=== PATIENT | male | born 1960 | race Caucasian/White ===

== ENCOUNTER 2025-02-02 18:29 | Inpatient (IN) | payer BC ==
[~2025-02-02] VITALS: Ht 180.3 cm; Wt 100.5 kg
[2025-02-02 20:30] VITALS: BP 131/72; PULSE 97; RESP 16; O2SAT 97
[2025-02-02 20:50] VITALS: RESP 16; O2SAT 97
[2025-02-02] MEDS: HEPARIN DRIP-CARDIAC**PHARMACIST-TO-DOSE IV ONE (21:15)
[2025-02-02] MEDS ORDERED: heparin 10,000 units/1 ML INJ IV PRN (21:25)
[2025-02-02] MEDS ORDERED: heparin 10,000 units/1 ML INJ IV ONE (21:25)
[2025-02-02] MEDS: HEPARIN DRIP INITAL BOLUS --- DO NOT GIVE/ORDER MC ONE ×2 (21:40)
[2025-02-02 21:47] LABS: MEAN PLATELET VOLUME 8.3 FL (7.4-10.4); RED CELL DISTRIBUTION WIDTH 13.6 % (11.5-14.5)
[2025-02-02 22:00] VITALS: BP 130/69; PULSE 86; RESP 12; TEMP 97.3; O2SAT 98
[2025-02-02 22:00] LABS: INR 1.1 INR
[2025-02-02] MEDS ORDERED: UBID100C16 PO (22:24)
[2025-02-02] MEDS ORDERED: DOCO1CAP6 PO (22:28)
[2025-02-02] MEDS ORDERED: ACET-1008 PO (22:30)
[2025-02-02] MEDS ORDERED: IBUP-1984 PO (22:35)
[2025-02-02] MEDS ORDERED: GLUC1TAB75 PO (22:35)
[2025-02-02] MEDS: MESSAGE TO NURSING IV ONE (23:19)
[2025-02-03 02:00] VITALS: BP 103/67; PULSE 83; RESP 14; TEMP 97.1; O2SAT 97
[2025-02-03 04:15] LABS: MEAN PLATELET VOLUME 8.3 FL (7.4-10.4); RED CELL DISTRIBUTION WIDTH 13.9 % (11.5-14.5)
[2025-02-03] MEDS: heparin 25,000 UNIT/250ml bag 250 ML IV PRN (05:03)
[2025-02-03 06:00] VITALS: BP 132/95; PULSE 81; RESP 10; TEMP 97.3; O2SAT 98
--- NOTE | 2025-02-03 07:44 | ELECTROCARDIOGRAPH REPORT ---
[facility] Test Date: 2025-02-03 Test Time: 07:43:30 Pat Name: EDMUNDO GUZMAN Department: [facility] 3S [facility]: [id number] Room: [address] Gender: M Software Tester: : 1960 Requested By: NICKO VILLELA Order Number: [id number] Reading MD: Dr. ISABEL Sotelo Measurements Intervals [place] Rate: 68 P: 1 NV: 187 QRS: 1 QRSD: 94 T: 12 QT: 391 QTc: 416 Interpretive Statements Sinus rhythm RSR' in V1 or V2, probably normal variant Electronically Signed On 02-05-2025 20:17:[address] ISABEL Sotelo Please click the below link to view image of tracing.
[2025-02-03 08:00] VITALS: RESP 12; O2SAT 98
[2025-02-03] MEDS: aspirin 81mg, enteric-coated 1 TAB TABLET.DR PO SCH (08:00)
[2025-02-03 11:00] VITALS: BP 150/81; PULSE 81; RESP 12; TEMP 98.9; O2SAT 97
[2025-02-03] MEDS: MESSAGE TO NURSING IV ONE (11:10)
[2025-02-03] MEDS ORDERED: verapamil 2.5 mg/ml inj IV ONE (11:15)
[2025-02-03] MEDS ORDERED: LIDOcaine 1% 30ml preserv. free vial ONE (11:16)
[2025-02-03] MEDS ORDERED: midazolam 1 mg/ML 2ml injection ONE (11:16)
[2025-02-03] MEDS ORDERED: heparin 1,000unit/ml 10ml vial 10 ML ONE (11:16)
[2025-02-03] MEDS ORDERED: nitroGLYCERIN 500mcg/5mL D5W 5 ML IV ONE (11:16)
[2025-02-03] MEDS ORDERED: fentaNYL/PF 50MCG/1 ML 2ML syringe ONE (11:16)
[2025-02-03] MEDS ORDERED: iohexol 350 MG/ML 50ML vial IV ONE (12:20)
--- NOTE | 2025-02-03 12:53 | CARDIAC CATH REPORT ---
Cardiac Cath Report Providers to CC CC: NICKO VILLELA MD Procedure Comments: 1. Left Heart Catheterization 2. Selective Coronary Angiography 3. Instantaneous Wave-Free Ratio of the Right Coronary Arteryx 1 4. Instantaneous Wave-Free Ratio of the Left Anterior Descending x 1 5. Instantaneous Wave-Free Ratio of the Left Circumflex Artery x 1 6. Left ventriculography 7. Right Radial Artery Access Brief History/Indications: 64yo man with HTN, HLD transferred for , found to have elevated troponin. Techniques: After informed consent was obtained, the patient was brought to the cardiac catheterization laboratory and prepped and draped in usual sterile fashion for left heart catheterization and other procedures mentioned above. The right wrist was anesthetized with 1% Lidocaine and the right radial artery accessed via the Seldinger technique after which a 6Fr sheath was placed. Through this a TIG was used to engage the left ventricle, the left coronary artery, and the right coronary artery. The TIG was exchanged for a pigtail catheter which was used to cross into the left ventricle. See below for interventional procedure details. At the conclusion of the case the sheath was removed and hemostasis obtained with a VascBand. Findings Findings: HEMODYNAMICS: LV: 109/- mmHg LVEDP: 1 mmHg Ao: 110/66, MAP 82 mmHg CORONARY ARTERIES: Rt Dominant LMCA: Trifurcates into LAD, LCx, and RI. Luminal Irregularities LAD: Prox 30-40% stenosis D1: Luminal Irregularities D2: Small, luminal irregularities RI: Luminal Irregularities LCx: Ostial 50-60% stenosis OM1: Luminal Irregularities RCA: Proximal 50-60% stenosis PDA: Luminal Irregularities PL: Luminal Irregularities LV Gram: LVEF >70% without wall motion abnormalities iFR of the RCA: A JR 4 guide was placed into the ascending Aorta. The iFR system was used to connect to the Pressure-Wire. Both systems were zeroed. The Pressure wire was advanced into the Ascending Aorta where equalization was performed. The guide then used to engage the right coronary artery. The RCA lesion was crossed with the pressure wire. Multiple recordings were performed. The wire was then removed and repeat angiography no evidence of dissection. iFR Readings: 0.94, 0.94 No significant drift on pullback iFR of the LAD/LCx: A JL 4 guide was placed into the ascending Aorta. The iFR system was used to connect to the Pressure-Wire. Both systems were zeroed. The Pressure wire was advanced into the Ascending Aorta where equalization was performed. The guide then used to engage the left coronary artery. The LAD lesion was crossed with the pressure wire. Multiple recordings were performed. The wire was then removed and repeat angiography no evidence of dissection. iFR Readings: 0.94, 0.94 No significant drift on pullback The wire was then re-directed to the LCx system where it was used to cross the LCx lesion. Multiple recordings were performed. The wire was then removed and re peat angiography no evidence of dissection. iFR Readings: 0.99, 0.99 No significant drift on pullback Results Results: 1. Moderate CAD with neg iFR of the RCA, prox LAD, and LCx. 2. Hyperdynamic LV with LVEF > 70%. 3. RRA access, closed with VascBand RECOMMENDATIONS: 1. Cont GDMT HARJINDER VILLELA MD Feb 03, 2025 12:53
[2025-02-03] MEDS ORDERED: LOSA50TA64 PO (13:57)
[2025-02-03] MEDS ORDERED: HYDR25TA5 PO (13:57)
[2025-02-03] MEDS ORDERED: PRAV80TA75 PO (13:57)
[2025-02-03] MEDS ORDERED: ASPI-1071 PO (15:18)
[2025-02-03] MEDS ORDERED: NITR0.4T51 SL (15:19)
[2025-02-03] MEDS ORDERED: METO-395 PO (15:21)
--- NOTE | 2025-02-03 15:34 | CONSULTATION REPORT ---
History of Present Illness Providers to CC CC: NICKO PATINO MD ~ Reason for Admit\Admit Dx: Cardiology Consultation Refering MD: [facility] History of Present Illness This is a 64 year-old male with a past medical history of HTN, HLD, obesity who was transferred from [facility] with elevated troponin levels and chest pain. At time of exam, his chest pain has resolved. He remains NPO. Allergies: Coded Allergies: butorphanol (Verified Allergy, Severe, Hallucinations, 02/02/25) Active prescriptions Cardiac Medications Losartan 50mg QD HCTZ 25mg QD Pravastatin 80mg QD Home Medications Home Medications Active Metoprolol Succinate 25 Mg Tab.sr.24h 1 Tab PO DAILY 30 Days Nitrostat SL* (Nitroglycerin) 0.4 Mg Tablet 1 Tab SL Q5MIN PRN Ecotrin* (Aspirin) 81 Mg Tablet.dr 1 Tab PO DAILY 90 Days Reported Pravastatin Sodium 80 Mg Tablet 80 Mg PO DAILY Losartan Potassium 50 Mg Tablet 1 Tab PO DAILY Hydrochlorothiazide 25 Mg Tab 1 Tab PO DAILY Tylenol (Acetaminophen) 325 Mg Tablet 500 Mg PO PRN PRN 30 Days Past Medical History Medical History Comment Hypertension Hyperlipidemia Obesity Past Surgical History Surgical History Comment No prior cardio-pulmonary surgeries or procedures. Past Family History Family History Comment Non-contributory Past Social History Social History Comment Former smoker, quit over 10 years ago. Denies ilicit drugs. Alcohol socially 1-2 per week. Physical Exam Last Vital Signs Recorded: Temperature: 97.1, Source: Oral, Heart Rate: 74, Respiratory Rate: 12, BP: 137/67, Pulse Oximetry: 98, Weight: 100.500 General Appearance: alert, no apparent distress EENT: PERRL/EOMI Neck: normal inspection Respiratory: lungs clear, normal breath sounds Chest: no accessory muscle use Cardiovascular: normal peripheral pulses Peripheral Pulses: 3+ radial (R), 3+ radial (L), 3+ dorsalis pedis (R), 3+ dorsalis pedis (L) Gastrointestinal: normal palpation Back: no CVA tenderness Neurologic: oriented x4, memory intact Psychiatric: normal mood/affect Skin: normal color, warm/dry Lymphatic: no adenopathy Review of Systems All Other Systems at this time: Reviewed and Negative ROS ROS reviewed and negative except that which specified in HPI. Results EKG EKG Normal sinus rhythm, no ischemic changes. Diagram Lab Result Diagram: 02/03/25 0405 Assessment/Plan Additional Plan This is a 64 year-old male with a past medical history of HTN, HLD, obesity who was transferred from [facility] with elevated troponin levels and chest pain. NSTEMI The patient is now chest pain free, however troponin levels were significantly elevated at [facility]. Discussed with patient all treatment options. He would be a good candidate for heart catheterization and percutaneous revascularization, if necessary. The nature of the procedure, including the risks, benefits, and alternatives were discussed with the patient, he is agreeable to move forward. Primary Hypertension. Well controlled per pt. -Continue Losartan 50mg QD. Hyperlipidemia. Intollerant of Atorvastatin. -Continue Pravastatin 80mg QD. The above plan was reviewed with supervising physician, Dr. Opal Patino, who is in agreement. Supervising MD Supervising Physician: TU Acosta [facility] Feb 03, 2025 15:34
--- NOTE | 2025-02-03 16:12 | DISCHARGE SUMMARY ---
Discharge Summary Providers to CC CC: NICKO PATINO MD ~ Discharge Summary Admission Diagnosis: NSTEMI Hospital Course DATE OF ADMISSION: DATE OF DISCHARGE: Discharge Diagnosis\Comment: NSTEMI. Non-obstructive coronary artery disease. Operations\Procedures: Left Heart Catheterization Results: 1. Moderate CAD with neg iFR of the RCA, prox LAD, and LCx. 2. Hyperdynamic LV with LVEF > 70%. 3. RRA access, closed with VascBand Consultants: None Complications: None Condition on DC: Stable New Medications: Metoprolol Succinate (Metoprolol Succinate) 25 Mg Tab.sr.24h 1 TAB PO DAILY for 30 Days, #30 TAB 0 Refills Nitroglycerin SL* (Nitrostat SL*) 0.4 Mg Tablet 1 TAB SL Q5MIN PRN for Chest pain Q5min PRNx3-call MD, #25 TAB Aspirin (Ecotrin*) 81 Mg Tablet.dr 1 TAB PO DAILY for 90 Days, #90 TAB.SR Continued Medications: Acetaminophen (Tylenol) 325 Mg Tablet 500 MG PO PRN PRN for pain or fever for 30 Days, #30 TAB Hydrochlorothiazide (Hydrochlorothiazide) 25 Mg Tab 1 TAB PO DAILY Losartan Potassium (Losartan Potassium) 50 Mg Tablet 1 TAB PO DAILY Pravastatin Sodium (Pravastatin Sodium) 80 Mg Tablet 80 MG PO DAILY Discharge Summary: This is a 64 year-old male with a past medical history of HTN, HLD, obesity who was transferred from [facility] with elevated troponin levels and chest pain. He was taken to the cardiac catheterization lab and was found to have non- obstructive CAD as follows: CORONARY ARTERIES: Rt Dominant LMCA: Trifurcates into LAD, LCx, and RI. Luminal Irregularities LAD: Prox 30-40% stenosis D1: Luminal Irregularities D2: Small, luminal irregularities RI: Luminal Irregularities LCx: Ostial 50-60% stenosis OM1: Luminal Irregularities RCA: Proximal 50-60% stenosis PDA: Luminal Irregularities PL: Luminal Irregularities LV Gram: LVEF >70% without wall motion abnormalities Results: 1. Moderate CAD with neg iFR of the RCA, prox LAD, and LCx. 2. Hyperdynamic LV with LVEF > 70%. 3. RRA access, closed with VascBand RECOMMENDATIONS: 1. Cont GDMT Continue home medications, including Pravastatin (allergic to Atorvastatin). Start Metoprolol, ASA as above. Follow up with PCP within 2 weeks. Follow up with [facility]. *Problems/Diagnosis: (1) NSTEMI (non-ST elevated myocardial infarction) Status: Acute Assessment & Plan: Non-obtstructive CAD (2) Essential hypertension Status: Chronic Assessment & Plan: Continue Losartan and Metoprolol Succinate. F/U with PCP (3) Hyperlipidemia Status: Chronic Assessment & Plan: Intollerant to Atorvastatin. Continue Pravastatin 80mg QHS. (4) Obesity Status: Chronic Assessment & Plan: Work with PCP to develop exercise regimen and heart healthy diet. Goal BMI <28 Total Time Spent on D/C: > 30 Minutes Counseling Services Smoking & Tobacco Cessation: N/A Supervising MD Co-signing Provider: Opal Patino MD Problem Qualifiers (1) Hyperlipidemia: Qualified Codes: E78.00 - Pure hypercholesterolemia, unspecified (2) Obesity: Qualified Codes: E66.811 - Obesity, class 1; E66.09 - Other obesity due to excess calories; Z68.30 - Body mass index [BMI] 30.0-30.9, adult WILLIAM,TU Sinclair [facility] Feb 03, 2025 15:56
== END 2025-02-03 15:59 | disposition home or self-care (01) | DRG 282 ==
LOC: PCU 3S 20:52
PROVIDERS: ADMIT Internal Medicine Interventional Cardiology; ATTEND Internal Medicine Interventional Cardiology
PROC: 4A023N7 Measurement of Cardiac Sampling and Pressure, Left Heart, Percutaneous Approach (ICD-10-PCS; principal; 2025-02-03)
PROC: B2111ZZ Fluoroscopy of Multiple Coronary Arteries using Low Osmolar Contrast (ICD-10-PCS; 2025-02-03)
PROC: B2151ZZ Fluoroscopy of Left Heart using Low Osmolar Contrast (ICD-10-PCS; 2025-02-03)
PROC: 4A033BC Measurement of Arterial Pressure, Coronary, Percutaneous Approach (ICD-10-PCS; 2025-02-03)
DX: I21.4 Non-ST elevation (NSTEMI) myocardial infarction (principal); I10 Essential (primary) hypertension; I25.10 Atherosclerotic heart disease of native coronary artery without angina pectoris; E66.811 Obesity, class 1; E78.5 Hyperlipidemia, unspecified; Z87.891 Personal history of nicotine dependence; Z79.899 Other long term (current) drug therapy; Z88.8 Allergy status to other drugs, medicaments and biological substances; Z68.30 Body mass index [BMI] 30.0-30.9, adult
CPT/HCPCS: 36415; 85025; 85347; 85610; 85730; 87081; 93005; 93458; 93571; 93572; 99285; A6258; C1751; C1769; C1894; G0378; J1644; J2003; J2250; J3010; J3490; J7030; Q9967